=== PATIENT | female | born 1980 | race Hispanic/Latino ===

== ENCOUNTER 2016-07-27 21:22 | Emergency (ER) | payer OTHER ==
[~2016-07-27] VITALS: Ht 165.1 cm; Wt 99.8 kg
[~2016-07-27 21:22] MED LIST: ACETAMINOPHEN-1 EAC3 PO; IBUPROFEN600 M1 PO; PERCOCET 5-3251 EACH PO; PERIOGARD473 ML PO
--- NOTE | 2016-07-27 21:48 | ED CARDIAC/CP/PALPITATIONS ---
History of Present Illness General Chief Complaint: Chest Pain Stated Complaint: PT IS HAVING CHEST PAIN WHEN TAKING DEEP BREATH Source: patient Exam Limitations: no limitations Vital Signs & Intake/Output Vital Signs & Intake/Output Vital Signs Date Time Temp Pulse Resp B/P Pulse O2 O2 Flow FiO2 Ox Delivery Rate 07/27 2353 97.0 82 20 100/55 96 Room Air 07/27 2148 97.7 94 20 116/74 97 Room Air ED Intake and Output 07/28 0000 07/27 1200 Intake Total 20 Output Total Balance 20 Intake, Oral 20 Patient 220 lb Weight Allergies Coded Allergies: amoxicillin (Intermediate, RASH, HIVES, FEVER 07/27/16) Triage Nurses Notes Reviewed? yes Onset: Gradual Duration: day(s):, waxing and waning Timing: recent history Quality/Severity: moderate Location: RIGHT SIDED CHEST PAIN Radiation: no radiation Activities at Onset: none Prior Chest Pain/Card Workup: no prior chest pain Modifying Factors: Worsens With: breathing, coughing. Associated Symptoms: RIGHT SIDED CHEST/RIB PAIN HPI: 36-year-old woman presents with 2 days of right sided lower rib pain, worse with deep inspiration. She is uncertain of the etiology. She is otherwise healthy. The pain is worse with deep inspiration. She is no central chest pain. The pain is not radiating. She is otherwise well and has no other concerns. She has no cough and wheeze fever chills or dyspnea. Past History Travel History Traveled to [place] past 21 day No Medical History Any Pertinent Medical History? see below for history Renal: GALL STONES Surgical History Surgical History: non-contributory Psychosocial History What is your primary language [place] Family History Hx Contributory? No Review of Systems Review of Systems Constitutional: Reports: no symptoms. EENTM: Reports: no symptoms. Respiratory: Reports: no symptoms. Cardiovascular: Reports: no symptoms. GI: Reports: no symptoms. Genitourinary: Reports: no symptoms. Musculoskeletal: Reports: no symptoms. Skin: Reports: no symptoms. Neurological/Psychological: Reports: no symptoms. Hematologic/Endocrine: Reports: no symptoms. Immunologic/Allergic: Reports: no symptoms. All Other Systems: Reviewed and Negative Physical Exam Physical Exam General Appearance: well developed/nourished, no apparent distress Head: atraumatic Eyes: Bilateral: normal appearance. Ears, Nose, Throat: normal pharynx, normal ENT inspection Neck: normal inspection Respiratory: normal breath sounds, no respiratory distress, WHILE RIGHT LOWER RIB CAGE TENDERNESS TO PALPATION Cardiovascular: regular rate/rhythm Gastrointestinal: normal bowel sounds, soft, non-tender, no organomegaly Back: normal inspection Extremities: normal inspection Neurologic/Psych: no motor/sensory deficits, awake, alert, oriented x 3 Skin: intact, normal color, warm/dry Core Measures ACS in differential dx? No Severe Sepsis Present: No Septic Shock Present: No Progress Differential Diagnosis: AMI, musculoskeletal pain, pneumonia, pulmonary embolism Plan of Care: Orders Procedure Date/time Status TROPONIN LEVEL 07/28 22 Complete EKG 07/28 22 Active TROPONIN LEVEL 07/27 2134 Complete HUMAN BETA HCG SCREEN 07/27 2134 Complete D-DIMER 07/27 2134 Complete COMPREHENSIVE METABOLIC PANEL 07/27 2134 Complete CBC WITHOUT DIFFERENTIAL 07/27 2134 Complete EKG 07/27 2126 Active Laboratory Tests 07/28/16 0100: Troponin I 0.01 07/27/16 2150: Anion Gap 12, Estimated GFR > 60, BUN/Creatinine Ratio 14.4, Glucose 118 H, Calcium 9.5, Total Bilirubin 0.3, AST 20, ALT 36, Alkaline Phosphatase 58, Troponin I < 0.01, Total Protein 7.1, Albumin 4.1, Globulin 3.0, Albumin/ Globulin Ratio 1.4, Total Beta HCG NEGATIVE, D-Dimer 268 H, CBC w Diff NO MAN DIFF REQ, RBC 4.59, MCV 81.7, MCH 26.5 L, RDW 16.4 H, MPV 8.9, Gran % 68.8, Lymphocytes % 22.7, Monocytes % 5.8, Eosinophils % 2.0, Basophils % 0.7, Absolute Granulocytes 8.4 H, Absolute Lymphocytes 2.8, Absolute Monocytes 0.7 H, Absolute Eosinophils 0.2, Absolute Basophils 0.1, PUBS MCHC 32.5 L Diagnostic Imaging: Viewed by Me: Radiology Read, CT Scan. Discussed w/RAD: Radiology Read, CT Scan. Radiology Impression: CT ANGIO... 3MM PULM NODULE... FULL REPORT BELOW. CXR Impression: no acute abnormality, no infiltrates, normal size heart, normal mediastinum Initial ED EKG: normal axis, normal intervals, normal p-waves, normal QRS complex, normal sinus rhythm Repeat EKG: unchanged Comments: PATIENT: EDYTA MOSQUERA PRESENT AGE: 36 PATIENT ACCOUNT NO: [id number] : 79 LOCATION: [facility] ORDERING PHYSICIAN: DERRELL CROW MD SERVICE DATE: 07/27/16 EXAM TYPE: RAD - XRY-PORTABLE CHEST XRAY EXAMINATION: XR PORTABLE CHEST CLINICAL INFORMATION: Chest pain COMPARISON: None TECHNIQUE: Portable AP view of the chest was obtained. FINDINGS: The lungs are hypoinflated. No focal consolidation is seen. No evidence of pneumothorax, pleural effusion, or pulmonary edema. The cardiac silhouette is prominent and may be accentuated by low lung volumes. No acute osseous findings are seen. IMPRESSION: Prominent cardiac silhouette, which may be accentuated by low lung volumes. No acute pulmonary findings. DICTATED BY: JOESPH GARCIA MD DATE/TIME DICTATED:07/28/1625 PROFESSOR OF VEGETABLE SCIENCE:CARLO DATE/TIME TRANSCRIBED:07/28/1625 CONFIDENTIAL, DO NOT COPY WITHOUT APPROPRIATE AUTHORIZATION. <Electronically signed in Other Vendor System> SIGNED BY: JOESPH GARCIA MD 07/28/1630 PATIENT: EDYTA MOSQUERA PRESENT AGE: 36 PATIENT ACCOUNT NO: [id number] : 79 LOCATION: [facility] ORDERING PHYSICIAN: DERRELL CROW MD SERVICE DATE: 07/28/16 EXAM TYPE: CAT - CTA CHEST-PULMONARY EMBOLISM EXAMINATION: CT ANGIOGRAM OF THE CHEST WITH AND WITHOUT CONTRAST (CT PULMONARY ANGIOGRAM FOR PE) CLINICAL INFORMATION: RIGHT SIDED CHEST PAIN.... +DIMER COMPARISON: Chest x-ray 07/27/2016 TECHNIQUE: Prior to contrast administration, noncontrast localization images were obtained. Subsequently, multidetector volumetric imaging was performed from the thoracic inlet to below the diaphragms following the administration of 95 mL Optiray 350 intravenous contrast. No contrast reaction reported Sagittal, coronal, and MIP oblique sagittal reformatted images were obtained on the CT workstation, uploaded to PACS, and reviewed. Total exam dose-length product 515.15 mGy-cm FINDINGS: QUALITY OF STUDY/CONTRAST BOLUS: Satisfactory. PULMONARY ARTERIES: No central or segmental pulmonary emboli. THORACIC AORTA: No aneurysm or dissection. LUNG: No regions of consolidation bilaterally. There is a 3 mm right upper lobe nodule on image 27/56 laterally. PLEURA: No pleural effusion or pneumothorax. MEDIASTINUM: Normal heart size. No pericardial effusion. No hilar or mediastinal lymphadenopathy. No evidence of septal bowing or right heart strain. CHEST WALL/AXILLA: No axillary or internal mammary lymphadenopathy. OSSEOUS STRUCTURES: No acute or suspicious osseous abnormality. Mild endplate osteophytes are noted in the spine. UPPER ABDOMEN: Patient is status post cholecystectomy. No reflux of contrast into the hepatic veins to suggest elevated right heart pressures. IMPRESSION: 1. No pulmonary embolus identified. 2. Right upper lobe 3 mm lung nodule, statistically likely benign. If the patient is at high risk for malignancy, [address] is recommended. VTE: negative DICTATED BY: JOESPH GARCIA MD DATE/TIME DICTATED:07/28/16140 PROFESSOR OF VEGETABLE SCIENCE:CARLO DATE/TIME TRANSCRIBED:07/28/16140 CONFIDENTIAL, DO NOT COPY WITHOUT APPROPRIATE AUTHORIZATION. <Electronically signed in Other Vendor System> SIGNED BY: JOESPH GARCIA MD 07/28/16 0155 Departure Departure Disposition: HOME OR SELF CARE Condition: Stable Clinical Impression Primary Impression: Chest pain Referrals: ANDRIA RODNEY APRN (PCP/Family) Departure Forms: Customer Survey General Discharge Information Comments 07/28/2016 2:11:46 AM: Patient feels well at discharge. She has had negative troponin 2, a negative chest chest angiogram and chest x-ray. She has mild reproducible chest wall tenderness. She is safe for discharge. I referred her to cardiology. Encouraged close follow-up and return in the emergency department if her symptoms return. Critical Care Note Critical Care Note Critical Care Time: non-applicable
[2016-07-27 22:05] LABS: ABSOLUTE BASOPHIL COUNT 0.1 /CUMM (0.0-0.2); ABSOLUTE EOSINOPHIL COUNT 0.2 /CUMM (0.0-0.7); ABSOLUTE GRANULOCYTE CT 8.4 /CUMM (1.4-6.5); ABSOLUTE LYMPH COUNT 2.8 /CUMM (1.2-3.4); ABSOLUTE MONOCYTE COUNT 0.7 /CUMM (0.10-0.60); BASOPHIL % 0.7 % (0.0-2.0); GRANULOCYTE % 68.8 % (42.2-75.2); HEMATOCRIT 37.5 % (37-47); MEAN CORPUSCULAR HGB 26.5 PG (27.0-31.0); MEAN CORPUSCULAR HGB CONC 32.5 G/DL (33.0-37.0); MEAN CORPUSCULAR VOLUME 81.7 FL (81.0-99.0); MEAN PLATELET VOLUME 8.9 FL (7.4-10.4); PLATELET COUNT 298 /CUMM (130-400); RBC DISTRIBUTION WIDTH 16.4 % (11.5-14.5); RED BLOOD CELL CT 4.59 /CUMM (4.20-5.40); WHITE BLOOD CELL COUNT 12.2 /CUMM (4.8-10.8)
--- NOTE | 2016-07-28 00:31 | RADIOLOGY REPORT ---
EXAMINATION: XR PORTABLE CHEST CLINICAL INFORMATION: Chest pain COMPARISON: None TECHNIQUE: Portable AP view of the chest was obtained. FINDINGS: The lungs are hypoinflated. No focal consolidation is seen. No evidence of pneumothorax, pleural effusion, or pulmonary edema. The cardiac silhouette is prominent and may be accentuated by low lung volumes. No acute osseous findings are seen. IMPRESSION: Prominent cardiac silhouette, which may be accentuated by low lung volumes. No acute pulmonary findings.
--- NOTE | 2016-07-28 01:55 | CT SCAN REPORT ---
EXAMINATION: CT ANGIOGRAM OF THE CHEST WITH AND WITHOUT CONTRAST (CT PULMONARY ANGIOGRAM FOR PE) CLINICAL INFORMATION: RIGHT SIDED CHEST PAIN.... +DIMER COMPARISON: Chest x-ray 07/27/2016 TECHNIQUE: Prior to contrast administration, noncontrast localization images were obtained. Subsequently, multidetector volumetric imaging was performed from the thoracic inlet to below the diaphragms following the administration of 95 mL Optiray 350 intravenous contrast. No contrast reaction reported Sagittal, coronal, and MIP oblique sagittal reformatted images were obtained on the CT workstation, uploaded to PACS, and reviewed. Total exam dose-length product 515.15 mGy-cm FINDINGS: QUALITY OF STUDY/CONTRAST BOLUS: Satisfactory. PULMONARY ARTERIES: No central or segmental pulmonary emboli. THORACIC AORTA: No aneurysm or dissection. LUNG: No regions of consolidation bilaterally. There is a 3 mm right upper lobe nodule on image 27/56 laterally. PLEURA: No pleural effusion or pneumothorax. MEDIASTINUM: Normal heart size. No pericardial effusion. No hilar or mediastinal lymphadenopathy. No evidence of septal bowing or right heart strain. CHEST WALL/AXILLA: No axillary or internal mammary lymphadenopathy. OSSEOUS STRUCTURES: No acute or suspicious osseous abnormality. Mild endplate osteophytes are noted in the spine. UPPER ABDOMEN: Patient is status post cholecystectomy. No reflux of contrast into the hepatic veins to suggest elevated right heart pressures. IMPRESSION: 1. No pulmonary embolus identified. 2. Right upper lobe 3 mm lung nodule, statistically likely benign. If the patient is at high risk for malignancy, [address] is recommended. VTE: negative
[2016-07-28 02:11] VITALS: BP 108/74
== END 2016-07-28 02:12 ==
LOC: ERH 21:22
PROVIDERS: Pediatrics
DX: R07.9 Chest pain, unspecified (principal)
CPT/HCPCS: 93005; 93010; 96374; J1885